=== PATIENT | male | born 1990 | race African-American/Black ===

== ENCOUNTER 2019-11-07 17:59 | Emergency (ER) | payer OTHER ==
[~2019-11-07] VITALS: Ht 177.8 cm; Wt 74.8 kg
--- NOTE | 2019-11-07 18:06 | NUR ---
BIBRA 37 FROM [facility], C/O SHARP MID-CHEST PAIN, NON-RADIATING, ASA 324MG AND NITRO 1SPRAY GIVEN ON SCENE, 8/10 PAIN SCALE, BS 207. TO ER BED 11, HOOKED TO SOCIAL AND POLITICAL STUDIES PROFESSOR AND POX, NOTED WITH SINUS TACHYCARDIA, CHANGED TO HOSP GOWN, NOTED WITH L AC 18G IV PERIPHERAL LINE, PATENT. WARM BLANKET PROVIDED, PATIENT AAO x 4. DR WILLOUGHBY AT BEDSIDE
--- NOTE | 2019-11-07 18:10 | NUR ---
SEEN AND EXAMINED BY .
--- NOTE | 2019-11-07 18:19 | NUR ---
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
[2019-11-07 18:30] LABS: BASOPHILS # (AUTO) 0.2 /CMM (0.0-0.2); BASOPHILS % (AUTO) 1.4 % (0.0-2.0); EOSINOPHILS % (AUTO) 0.1 % (0.0-6.0); HEMATOCRIT 39 % (39-51); HEMOGLOBIN 12.7 g/dL (13.5-17.5); LYMPHOCYTES # (AUTO) 2.6 /CMM (0.8-4.8); LYMPHOCYTES % (AUTO) 19.1 % (20.0-44.0); MEAN CORPUSCULAR HGB CONC 33 g/dl (31.0-36.0); MEAN CORPUSCULAR VOLUME 91 fL (80-96); MONOCYTES # (AUTO) 0.9 /CMM (0.1-1.30); MONOCYTES % (AUTO) 6.4 % (2.0-12.0); NEUTROPHILS # (AUTO) 9.9 /CMM (1.8-8.9); RED BLOOD CELL COUNT(AUTO) 4.23 MIL/uL (4.5-6.0); WHITE BLOOD COUNT (AUTO) 13.6 K/uL (4.3-11.0)
[2019-11-07] MEDS ORDERED: KETOROLAC TROMETHAMINE INJ 30 MG/ML VIAL IV ONE (18:30)
[2019-11-07] MEDS ORDERED: ONDANSETRON HCL/PF 4 MG/2 ML VIAL IVP ONE (18:30)
[2019-11-07] MEDS ORDERED: IV NS 0.9% 1,000 ML BAG IV ONE ×2 (18:30→19:00)
[2019-11-07 18:38] LABS: CALCIUM, SERUM 9.5 mg/dL (8.5-10.1); CARBON DIOXIDE 24 mmol/L (21-32); CHLORIDE 99 mmol/L (98-107); CREATININE 1.2 mg/dL (0.6-1.3); GLUCOSE 315 mg/dL (74-106); POTASSIUM 3.7 mmol/L (3.5-5.1); SODIUM SERUM 134 mmol/L (136-145); UREA NITROGEN, BLOOD 15 mg/dL (7-18)
[2019-11-07 18:46] LABS: ALANINE AMINOTRANSFERASE 24 U/L (12-78); ALBUMIN 3.6 g/dL (3.4-5.0); ALKALINE PHOSPHATASE 76 U/L (46-116); ASPARTATE AMINOTRANSFERASE 30 U/L (15-37); BILIRUBIN,DIRECT 0.2 mg/dL (0.0-0.2); BILIRUBIN,TOTAL 0.8 mg/dL (0.2-1.0); LIPASE 20 U/L (73-393)
[2019-11-07] MEDS ORDERED: LORAZEPAM INJ 2 MG/ML VIAL IV ONE (19:00)
[2019-11-07] MEDS ORDERED: INSULIN REGULAR, HUMAN 100 UNIT/ML 10 ML VIAL IV ONE (19:00)
[2019-11-07] MEDS ORDERED: KETOROLAC TROMETHAMINE 15 MG/ML VIAL ONE (19:00)
[2019-11-07] MEDS ORDERED: ONDANSETRON HCL/PF 4 MG/2 ML VIAL ONE (19:01)
[2019-11-07] MEDS ORDERED: LORAZEPAM INJ 2 MG/ML VIAL ONE (19:01)
[2019-11-07] MEDS ORDERED: INSULIN REGULAR, HUMAN 100 UNIT/ML 10 ML VIAL ONE (19:01)
--- NOTE | 2019-11-07 19:09 | NUR ---
LAC IV PERIPHERAL LINE INFILTRATED. IV REMOVED. CATHETER INTACT AND SITE BENIGN, PRESSURE AND 4X4 APPLIED TO SITE, NO BLEEDING NOTED.
--- NOTE | 2019-11-07 19:16 | NUR ---
REPORT GIVEN TO LUZ ARGUELLO FOR SAMUEL
--- NOTE | 2019-11-07 19:30 | NUR ---
PT STATES HE FEELS A LITTLE BETTER. PT AAOX4,RESPIRATIONS EVEN AND UNLABORED ON RA W/ NAD NOTED. PT CONNECTED TO THE MONITOR AND POX.
[2019-11-07 20:03] LABS: BAND % (MANUAL) 3 % (0.0-5.0); LYMPHOCYTES % (MANUAL) 50 % (16-48); MONOCYTES % (MANUAL) 5 % (0-11.0); NEUTROPHILS % (MANUAL) 42 (42-76)
--- NOTE | 2019-11-07 21:21 | NUR ---
Patient discharged to home in stable condition. Written and verbal after care instructions given. Patient verbalizes understanding of instruction.pt. ambulatory with a steady gait
[2019-11-07 21:22] VITALS: BP 124/92
== END 2019-11-07 21:22 | disposition home or self-care (01) ==
LOC: ER 18:02
DX: F15.10 Other stimulant abuse, uncomplicated (principal); R07.89 Other chest pain; E11.65 Type 2 diabetes mellitus with hyperglycemia; K21.9 Gastro-esophageal reflux disease without esophagitis; F41.9 Anxiety disorder, unspecified; R00.0 Tachycardia, unspecified
CPT/HCPCS: 36415; 71045; 80048; 80076; 80305; 80307; 83690; 84484; 85025; 93005; 96361; 96374; 96375; 99285; J1815; J1885; J2060; J2405; J7030; G0480